=== PATIENT | female | born 1970 | race Caucasian/White ===

== ENCOUNTER → 2021-02-21 10:38 | Outpatient (CLI) | payer BC, SELFPAY ==
--- NOTE | 2021-02-21 | DI.MG.S_ITS ---
BILATERAL DIGITAL SCREENING MAMMOGRAM 3D/2D WITH CAD: 02/21/2021 CLINICAL: Routine screening. Comparison is made to exams dated: 11/09/2017 mammogram, 11/30/2018 mammogram, and 02/21/2020 mammogram - outside facility. There are scattered fibroglandular elements in both breasts. Current study was also evaluated with a Computer Aided Detection (CAD) system. No significant masses, calcifications, or other findings are seen in either breast. There has been no significant interval change. IMPRESSION: NEGATIVE There is no mammographic evidence of malignancy. A 1 year screening mammogram is recommended. This exam was interpreted at Station ID: [id number]. NOTE: For mammograms, a report in lay terms will be sent to the patient. Approximately 15% of breast malignancies will not be visualized mammographically. In the management of a palpable breast mass, a negative mammogram must not discourage biopsy of a clinically suspicious lesion. Electronically Signed By: Abiel Bush M.D., jr/tolu:02/21/2021 13:11:41 letter sent: Normal Exam ACR BI-RADS Category 1: Negative 3341F
== END ==
PROVIDERS: PCP Internal Medicine; Referring Provider Internal Medicine; Visit Provider Internal Medicine
DX: Z12.31 Encounter for screening mammogram for malignant neoplasm of breast (principal)
CPT/HCPCS: 77063; 77067

== ENCOUNTER → 2021-08-07 07:41 | Outpatient (CLI) | payer BC, SELFPAY ==
--- NOTE | 2021-08-07 | DI.US.S_ITS ---
PROCEDURE: US PELVIC COMPLETE INDICATIONS: CRAMPING X 1 YEAR LMP 09/11/2020. TECHNIQUE: Real-time scanning was performed of the pelvic organs, with image documentation. Additional endovaginal scanning was necessary due to incomplete visualization of the adnexal and endometrial structures by transabdominal scanning. COMPARISON: None. FINDINGS: Uterus: Uterus is anteverted and normal in size at 6.8 x 4.6 x 3.2 cm. The myometrium is homogeneous. No fibroids identified. The endometrium measures 2.2 mm combined thickness. Ovaries: The right ovary measures 2.5 x 1.8 x 0.9 cm, with a calculated ovarian volume of 2 cc. The left ovary measures 1.6 x 1.1 x 1.1 cm, with a calculated ovarian volume of 1 cc. The ovaries have a normal sonographic appearance. Small collapsing left anechoic cyst measuring 1.1 cm. No adnexal masses are seen. Other: No pathologic free abdominal or pelvic fluid. IMPRESSION: 1. No endometrial thickening. 2. No fibroids seen. 3. Sonographic appearance of the ovaries is within normal limits. We strive to produce accurate, complete, and clear reports of imaging services. To assist us in improving patient care, this report was composed using standard report templates and voice recognition software. Therefore, it may contain abnormal punctuation, insertions and/or omissions. Occasional wrong-word or sound-alike substitutions may occur. Though we review the report and make efforts to correct it, we do recommend that the report be read carefully in proper context to recognize any text inaccuracies. Dictated by: Sanjay Felton M.D. on 08/07/2021 at 8:59 Approved by: Sanjay Felton M.D. on 08/07/2021 at 9:06
== END ==
PROVIDERS: PCP Internal Medicine; Referring Provider Internal Medicine; Visit Provider Internal Medicine
DX: R10.2 Pelvic and perineal pain (principal); Z78.0 Asymptomatic menopausal state
CPT/HCPCS: 76830; 76856

== ENCOUNTER → 2022-01-06 14:35 | Outpatient (CLI) | payer BC, SELFPAY ==
--- NOTE | 2022-01-06 | DI.US.S_ITS ---
PROCEDURE: US PELVIC COMPLETE INDICATIONS: Postmenopausal bleeding TECHNIQUE: Real-time scanning was performed of the pelvic organs, with image documentation. Additional endovaginal scanning was necessary due to incomplete visualization of the adnexal and endometrial structures by transabdominal scanning. COMPARISON: None. FINDINGS: Uterus: Uterus is anteverted and normal in size at 8.3 x 3.6 by 5.2 cm. The myometrium is homogeneous. The endometrium measures approximately 2.8 mm combined thickness, although the margins of the endometrium are not well-defined. Ovaries: The right ovary measures 3.0 x 1.1 x 0.9 cm. The left ovary measures 2.0 x 1.7 x 1.9 cm. There is a 1.3 x 1.3 x 1.2 centimeter complex appearing cyst in the left adnexa which likely represents a simple cyst with the simple daughter cyst. Other: No pathologic free abdominal or pelvic fluid. IMPRESSION: Endometrium has poorly defined margins. Early neoplastic process is not excluded by this study. Recommend gynecology consultation and/or MRI of the pelvis for additional evaluation. Dictated by: Minda Maher MD, PhD on 01/06/2022 at 16:01 Approved by: Minda Maher MD, PhD on 01/06/2022 at 16:07
== END ==
PROVIDERS: PCP Internal Medicine; Referring Provider Internal Medicine; Visit Provider Internal Medicine
DX: N95.0 Postmenopausal bleeding (principal); N94.89 Other specified conditions associated with female genital organs and menstrual cycle
CPT/HCPCS: 76830; 76856

== ENCOUNTER → 2022-01-08 16:34 | Outpatient (CLI) | payer BC, SELFPAY ==
--- NOTE | 2022-01-08 16:37 | DI.MRI.S_ITS ---
PROCEDURE: MR PELVIS WO/W CON INDICATIONS: Postmenopausal bleeding/abnormal findings TECHNIQUE: Coronal HASTE, sagittal breath-hold T2 FSE; axial T1 FSE with and without fat saturation through the pelvis. Optional long- and short-axis uterine nonbreath-hold T2 FSE through the uterus. Sagittal or axial dynamic VIBE during administration of contrast. Post-contrast axial or coronal VIBE/2-D FLASH with fat saturation from the iliac crests to the symphysis. Optional diffusion weighted imaging and ADC may be performed. COMPARISON: [facility], PELVIC COMPLETE, 01/06/2022, 14:49. [facility], PELVIC COMPLETE, 08/07/2021, 7:52. FINDINGS: Image quality: Excellent. Uterus: The uterus is anteverted and has a septate morphology. A 1.2 cm irregular hypointense, hypoenhancing focus along the posterior fundal myometrium may be a fibroid. No other uterine masses. Junctional zone margin is not well seen. The margin of the endometrium is irregular and indistinct, particularly in the fundal region. There are a few sub endometrial cystic spaces posteriorly in the lower uterine segment. The endometrial thickness is at least 0.5 cm. Tiny sub endometrial T1 hyperintense foci are seen. No suspicious focal enhancement. Adnexa: The left ovary contains a dominant follicle and daughter cyst. The right ovary was not well seen, presumably diminutive. No unusual adnexal masses. Urinary system: Bladder wall is normal in thickness. Distal ureters are non distended. Urethra appears normal in morphology. Nodes and vessels: No pelvic or inguinal adenopathy by size criteria. Iliac vessels are normal in size. Bowel and peritoneum: No pathologic free pelvic fluid. Trace physiologic fluid. Inferior colon and small bowel loops are normal in caliber. Soft tissues: No inguinal hernias. No findings of pelvic floor incompetence in the absence of provocation. Bones: Marrow demonstrates normal overall signal. IMPRESSION: 1. Endometrial thickness by MRI at the upper limits of normal with an irregular margin. Given indistinct junctional zone, subendometrial cystic foci, and a sonographic appearance of extensive myometrial heterogeneity, findings are suspicious for uterine adenomyosis. Endometrial neoplasm is felt less likely but not entirely excluded. Given endometrial thickening and postmenopausal bleeding, tissue biopsy is recommended. 2. Physiologic left ovarian follicle. Dictated by: Sharon Nesbitt M.D. on 01/09/2022 at 9:57 Approved by: Sharon Nesbitt M.D. on 01/09/2022 at 10:35
== END ==
PROVIDERS: PCP Internal Medicine; Referring Provider Internal Medicine; Visit Provider Internal Medicine
DX: N95.0 Postmenopausal bleeding (principal); R93.89 Abnormal findings on diagnostic imaging of other specified body structures
CPT/HCPCS: 72197; A9579

== ENCOUNTER → 2022-01-13 13:32 | Outpatient (CLI) | payer BC, SELFPAY ==
[2022-01-13 15:40] LABS: COVID19 -Nasal RAPID Negative (Negative)
== END ==
PROVIDERS: PCP Internal Medicine; Visit Provider Family Medicine Sleep Medicine
DX: Z20.822 Contact with and (suspected) exposure to COVID-19 (principal)
CPT/HCPCS: 87635; C9803

== ENCOUNTER 2022-01-14 14:56 | Day surgery (SDC) | payer BC, SELFPAY ==
--- NOTE | 2022-01-14 12:11 | PM.PREOP ---
Pre-operative Note COVID-19 COVID-19 status: Negative Result date/Date tested (Pos, Neg/Pending): 01/13/22 Interval Note History & Physical reviewed/Exam performed by Physician: Yes Changes to H&P: No ASA Class (for procedural sedation): I
--- NOTE | 2022-01-14 12:13 | PM.OP.COLON ---
Operative Date/Time/Diagnoses Date of procedure: 01/14/22 Procedure Notes SCOAP/Timeout: 4:03 p.m. Procedure in detail: ENDOSCOPIST: Fatemeh Bautista MD Sedation RN: Ada Gomez RN Sedation start time: 4:04 p.m. Sedation end time: 3:21 p.m. PROCEDURE: Colonoscopy INDICATIONS: 1. Screening for colon cancer MEDICATION: Levsin 0.125 mg sublingual, incremental doses of Versed and fentanyl until appropriate level sedation achieved. ASA CLASS: 1 CECAL WITHDRAWAL TIME: 6 minutes COMPLICATIONS: None. EXTENT OF PROCEDURE: Cecum. QUALITY OF PREP: Good with portions of liquid stool. PROCEDURE: Prior to insertion of the colonoscope, a digital rectal examination was accomplished with circumferential palpation of the distal rectal mucosa without significant findings being noted. The high-definition pediatric colonoscope was passed into the rectum in the usual fashion and advanced over to the cecum without difficulty. The ileocecal valve, appendiceal stoma, and medial wall all could be inspected and no abnormalities were seen. ASCENDING COLON: As the colonoscope was withdrawn, care was taken to expose and inspect the haustral folds and no abnormalities were seen. HEPATIC FLEXURE: Normal, no polyps, diverticula or other abnormalities. TRANSVERSE COLON: Normal, no polyps, diverticula or other abnormalities. DESCENDING COLON: Normal, no polyps, diverticula or other abnormalities. SIGMOID COLON: Normal, no polyps, diverticula or other abnormalities. RECTUM: Normal. J maneuver was produced. There was no significant perianal disease. The J maneuver was broken. The remainder of the rectum was inspected and there was no external hemorrhoid disease. The scope was withdrawn. IMPRESSION: 1. Normal colonoscopy PLAN: 1. Repeat colonoscopy in 10 years. The possibility of a missed lesion including a malignancy has been discussed with the patient previously. Potential alarm symptoms have been discussed and should be reported immediately.
[2022-01-14 15:16] VITALS: BP 113/76; PULSE 57; RESP 16; TEMP 36.5; O2SAT 100; BMI 20.5
[2022-01-14] MEDS: HYOSCYAMINE 0.125 MG TABLET PO (15:29)
[2022-01-14] MEDS: LACTATED RINGERS 1,000 ML 200 ML IV (15:29)
[2022-01-14] MEDS: fentaNYL 250 MCG/5 ML INJ 75 MCG IV (16:06)
[2022-01-14] MEDS: MIDAZOLAM 5 MG/5 ML VIAL 3 MG IV (16:06)
[2022-01-14 16:25] VITALS: BP 102/58; PULSE 50; RESP 19; TEMP 36.2; O2SAT 100
[2022-01-14 16:30] VITALS: BP 98/58; PULSE 51; RESP 17; O2SAT 100
[2022-01-14 16:35] VITALS: BP 109/64; PULSE 47; RESP 15; O2SAT 100
[2022-01-14 16:40] VITALS: BP 109/60; PULSE 45; RESP 15; O2SAT 100
[2022-01-14 16:43] VITALS: BP 103/58; PULSE 47; RESP 15; O2SAT 100
== END 2022-01-14 16:51 | disposition home or self-care (01) ==
PROVIDERS: PCP Internal Medicine; Referring Provider Student in an Organized Health Care Education/Training Program; Visit Provider Student in an Organized Health Care Education/Training Program
PROC: 0DJD8ZZ Inspection of Lower Intestinal Tract, Via Natural or Artificial Opening Endoscopic (ICD-10-PCS; CPT 45378; principal; 2022-01-14 16:00)
DX: Z12.11 Encounter for screening for malignant neoplasm of colon (principal)
CPT/HCPCS: 45378; J2250; J3010

== ENCOUNTER → 2022-02-26 11:45 | Outpatient (CLI) | payer BC, SELFPAY ==
--- NOTE | 2022-02-26 | DI.MG.S_ITS ---
BILATERAL DIGITAL SCREENING MAMMOGRAM 3D/2D WITH CAD: 02/26/2022 CLINICAL: Routine screening. Comparison is made to exams dated: 02/21/2021 mammogram - [facility], 02/21/2020 mammogram, and 11/30/2018 mammogram - outside facility. There are scattered fibroglandular elements in both breasts. Current study was also evaluated with a Computer Aided Detection (CAD) system. No significant masses, calcifications, or other findings are seen in either breast. There has been no significant interval change. IMPRESSION: NEGATIVE There is no mammographic evidence of malignancy. A 1 year screening mammogram is recommended. Based on the Tyrer Cuzick model (a risk assessment model) the patient's lifetime risk is 14.8% and her 10 year risk is 4.1%. According to the ACR, ACS, and NCCN guidelines, an annual breast MRI exam along with mammogram is recommended if the patient's lifetime risk is 20% or greater. This exam was interpreted at Station ID: [id number]. NOTE: For mammograms, a report in lay terms will be sent to the patient. Approximately 15% of breast malignancies will not be visualized mammographically. In the management of a palpable breast mass, a negative mammogram must not discourage biopsy of a clinically suspicious lesion. Electronically Signed By: Jhonny cervantes/tolu:02/26/2022 12:54:48 letter sent: Normal Exam ACR BI-RADS Category 1: Negative 3341F
== END ==
PROVIDERS: PCP Internal Medicine; Referring Provider Internal Medicine; Visit Provider Internal Medicine
DX: Z12.31 Encounter for screening mammogram for malignant neoplasm of breast (principal)
CPT/HCPCS: 77063; 77067

== ENCOUNTER → 2022-03-11 15:12 | Outpatient (CLI) | payer BC, SELFPAY ==
[2022-03-11 16:41] LABS: Follicle Stimulating Hormone 25.6 mIU/mL
[2022-03-11 17:29] LABS: Estradiol, Total 101.3 pg/mL
== END ==
PROVIDERS: PCP Internal Medicine; Referring Provider Obstetrics & Gynecology; Visit Provider Obstetrics & Gynecology
DX: N95.1 Menopausal and female climacteric states (principal)
CPT/HCPCS: 36415; 82670; 83001

== ENCOUNTER → 2022-07-21 15:54 | Outpatient (CLI) | payer BC, SELFPAY ==
--- NOTE | 2022-07-21 15:56 | DI.ECHO.S_ITS ---
[facility] +---------+ : : [address] : [place] : : : : [id number] : : : : Phone: [phone]---------+ Echocardiogram Report + + :Name: TIMOTHY STOREY Study Date: 07/21/2022 Height: 63 in : :[facility] ReadingLocation: Weight: 116 lb : : Gender: Female BSA: 1.5 m2 : :: 1970 Age: 52 yrs BP: 132/90 mmHg: :Reason For Study: Palpitations : :Ordering Physician: REDD, : :EDDIE Performed By: Benjy Friend : :Referring: EDDIE RAINEY : + + Interpretation Summary Normal echo study. Procedure: A two-dimensional transthoracic echocardiogram with color flow and Doppler was performed. The study quality was technically adequate. There is no prior echocardiogram noted for this patient. The patient was in normal sinus rhythm during the exam. Left Ventricle: The left ventricle is normal in size and wall thickness. Left ventricular systolic function is normal. The ejection fraction is estimated to be 55-60%. There are no focal wall motion abnormalities. Diastolic parameters suggest probable normal left ventricular diastolic function and normal filling pressures. Right Ventricle: The right ventricle is normal in size and function. Atria: Both atria are normal in size. The interatrial septum grossly appears intact with no obvious evidence for an atrial septal defect. Mitral Valve: The mitral valve is normal in structure and function. There is trace mitral regurgitation. Aortic Valve: The aortic valve is normal in structure and function. No aortic regurgitation is present. Tricuspid Valve: The tricuspid valve is normal in structure and function. There is trace tricuspid regurgitation. The right ventricular systolic pressure is estimated to be at least 27 mmHg based on an estimated right atrial pressure of 8 mm Hg. Pulmonic Valve: The pulmonic valve is not well visualized. There is no pulmonic valvular regurgitation. Great Vessels: The aortic root is normal size. The dimensions of the ascending aorta are normal. The IVC is dilated (diameter is greater than 2.1 cm) yet it collapses greater than 50% with a sniff. This suggests a right atrial pressure of 8 mm Hg. Pericardium/ Pleura There is no pericardial effusion. There is no pleural effusion. MMode/2D Measurements & Calculations LVIDd: 4.4 cm LVOT diam: 1.8 cm LVIDs: 2.8 cm Ao root diam: 2.6 cm FS: 36.4 % asc Aorta Diam: 3.2 cm IVSd: 0.80 cm LVPWd: 0.80 cm LV johns. diameter/BSA (cm/m^2): 2.9 LV sys. diameter/BSA (cm/m^2): 1.8 LA dimension: 2.8 cm RA long axis: 4.1 cm LA A2 area: 14.7 cm2 RA area: 10.3 cm2 LA A4 area: 15.8 cm2 RA vol: 22.2 ml LA length (vol): 4.3 cm RA : 14.4 ml/m2 LA vol: 45.9 ml IVC diam: 2.3 cm LA vol index: 29.9 ml/m2 RVD1 (basal): 3.0 cm TAPSE_phl: 2.3 cm Doppler Measurements & Calculations Ao V2 max: 134.0 cm/sec LVOT Max Masood: 143.0 cm/sec Ao V2 mean: 94.7 cm/sec LV V1 max P.2 mmHg Ao max P.0 mmHg LV V1 VTI: 30.6 cm Ao mean P.0 mmHg CHARLES(I,D): 2.6 cm2 Ao V2 VTI: 29.9 cm CHARLES(V,D): 2.7 cm2 sev ratio: 1.0 CHARLES indexed to BSA (cm^2/m^2): 1.7 MV E max masood: 85.9 cm/sec TR max masood: 220.0 cm/sec MV A max masood: 63.5 cm/sec TR max P.4 mmHg MV E/A: 1.4 Med Peak E' Masood: 10.8 cm/sec E/E' med: 8.0 Lat Peak E' Masood: 11.1 cm/sec E/E' lat: 7.7 E/e' average: 7.8 MV dec time: 0.20 sec SV(LVOT): 77.9 ml AV VR_phl: 1.1 CHARLES(VTI)/BSA_phl: 1.7 MV P1/2t-pr_phl: 60.0 msec Electronically signed by: Patrizia Colvin on Reading Physician:07/21/2022 10:35 PM
== END ==
PROVIDERS: PCP Internal Medicine; Referring Provider Internal Medicine; Visit Provider Internal Medicine
DX: R00.2 Palpitations (principal)
CPT/HCPCS: 93306

== ENCOUNTER → 2023-03-04 12:56 | Outpatient (CLI) | payer BC, SELFPAY ==
--- NOTE | 2023-03-04 | DI.MG.S_ITS ---
BILATERAL DIGITAL SCREENING MAMMOGRAM 3D/2D WITH CAD: 03/04/2023 CLINICAL: Routine screening. Family history of breast cancer. Comparison is made to exams dated: 02/26/2022 mammogram, 02/21/2021 mammogram - [facility], and 02/21/2020 mammogram - outside facility. There are scattered areas of fibroglandular density in both breasts (category b / 25%-50% glandular tissue). Current study was also evaluated with a Computer Aided Detection (CAD) system. No significant masses, calcifications, or other findings are seen in either breast. There has been no significant interval change. IMPRESSION: NEGATIVE There is no mammographic evidence of malignancy. A 1 year screening mammogram is recommended. Based on the Tyrer Cuzick model (a risk assessment model) the patient's lifetime risk is 14.6% and her 10 year risk is 4.3%. According to the ACR, ACS, and NCCN guidelines, an annual breast MRI exam along with mammogram is recommended if the patient's lifetime risk is 20% or greater. This exam was interpreted at Station ID: [id number]. NOTE: For mammograms, a report in lay terms will be sent to the patient. Approximately 15% of breast malignancies will not be visualized mammographically. In the management of a palpable breast mass, a negative mammogram must not discourage biopsy of a clinically suspicious lesion. Electronically Signed By: Talha sims/tolu:03/04/2023 13:38:09 letter sent: Normal Exam ACR BI-RADS Category 1: Negative 3341F
== END ==
PROVIDERS: PCP Internal Medicine; Referring Provider Internal Medicine; Visit Provider Internal Medicine
DX: Z12.31 Encounter for screening mammogram for malignant neoplasm of breast (principal); Z80.3 Family history of malignant neoplasm of breast
CPT/HCPCS: 77063; 77067

== ENCOUNTER → 2024-04-18 13:13 | Outpatient (CLI) | payer BC, SELFPAY ==
--- NOTE | 2024-04-18 13:14 | DI.MG.S_ITS ---
BILATERAL DIGITAL SCREENING MAMMOGRAM 3D/2D WITH CAD: 04/18/2024 CLINICAL: Routine screening. Family history of breast cancer. Comparison is made to exams dated: 03/04/2023 mammogram, 02/26/2022 mammogram, and 02/21/2021 mammogram - [facility]. There are scattered areas of fibroglandular density in both breasts (category b / 25%-50% glandular tissue). Current study was also evaluated with a Computer Aided Detection (CAD) system. No significant masses, calcifications, or other findings are seen in either breast. There has been no significant interval change. IMPRESSION: NEGATIVE There is no mammographic evidence of malignancy. A 1 year screening mammogram is recommended. Based on the Tyrer Cuzick model (a risk assessment model) the patient's lifetime risk is 14.5% and her 10 year risk is 4.5%. According to the ACR, ACS, and NCCN guidelines, an annual breast MRI exam along with mammogram is recommended if the patient's lifetime risk is 20% or greater. This exam was interpreted at Station ID: [id number]. NOTE: For mammograms, a report in lay terms will be sent to the patient. Approximately 15% of breast malignancies will not be visualized mammographically. In the management of a palpable breast mass, a negative mammogram must not discourage biopsy of a clinically suspicious lesion. Electronically Signed By: Talha sims/tolu:04/18/2024 13:36:09 letter sent: Normal Exam ACR BI-RADS Category 1: Negative 3341F
== END ==
PROVIDERS: PCP Internal Medicine; Referring Provider Internal Medicine; Visit Provider Internal Medicine
DX: Z12.31 Encounter for screening mammogram for malignant neoplasm of breast (principal); Z80.3 Family history of malignant neoplasm of breast; R92.323 Mammographic fibroglandular density, bilateral breasts
CPT/HCPCS: 77063; 77067

== ENCOUNTER 2024-04-21 12:40 | Emergency (ER) | payer BC, SELFPAY ==
[2024-04-21] VITALS (8 sets, daily range): BP systolic 110–141; BP diastolic 66–83; PULSE 54–71; RESP 14; TEMP 36.3; O2SAT 93–100
--- NOTE | 2024-04-21 13:11 | ED.WEAKNESS ---
HPI - Weakness General Chief complaint: Urogenital-Female Stated complaint: low bp, wrist swelling both Time Seen by Provider: 04/21/24 12:46 Source: patient Mode of arrival: Ambulatory History of Present Illness HPI Narrative: Patient is a 54-year-old healthy female presenting today from PCP office. She reports that she was just treated for a UTI he finished antibiotics, Macrobid, 2 days ago she was on 5 days of antibiotics. She reports that symptoms are somewhat improved but not completely gone. She went there for follow-up. Today he is reporting of significant bilateral wrist pain. 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 Yesterday she reports some body aches and chills. No actual fever. She has no sore throat cough. She denies any back pain nausea or vomiting. She does not feel quite right. Now she is noticing that she has a little bit rash in bilateral ACs and upon her right arm. She denies any pruritus. No difficulty breathing. Related Data Home Medications Medication Instructions Recorded Confirmed No Known Home Medications 03/11/22 03/11/22 Allergies Allergy/AdvReac Type Severity Reaction Status Date / Time Penicillins Allergy Intermediate Verified 04/21/24 12:53 birch tree pollen Allergy Unknown Uncoded 03/11/22 14:36 certain fruits Allergy Unknown Uncoded 03/11/22 14:36 certain vegtables Allergy Unknown Uncoded 03/11/22 14:36 nuts Allergy Unknown Uncoded 03/11/22 14:36 Patient History Medical History COVID-19 Macrocytosis Stress incontinence Post-menopausal bleeding Surgical History History of appendectomy Hx of colonoscopy Social History household members: spouse Smoking Status: Never smoker alcohol intake: current Smoking Status: Never smoker alcohol intake frequency: 0-2 drinks per day Substance Use Type: does not use Exam Initial Vital Signs Initial Vital Signs: Vital Signs Temperature 97.4 F L 04/21/24 12:42 Pulse Rate 71 04/21/24 12:42 Respiratory Rate 14 04/21/24 12:42 Blood Pressure 141/66 H 04/21/24 12:42 Pulse Oximetry 100 04/21/24 12:42 Oxygen Delivery Method Room Air 04/21/24 12:42 GENERAL: Alert pleasant 54-year-old female and in no acute distress. HEENT: Head atraumatic,EOMI, pupils reactive, face symmetric, moist mucous membranes CARDIOVASCULAR: Regular rate and rhythm without murmurs, rubs or gallops. RESPIRATORY: Breath sounds equal bilaterally, no wheezes rales or rhonchi. ABDOMEN: Soft, nontender. Normoactive bowel sounds all 4 quadrants. No guarding or rebound. : No CVA tenderness EXTREMITIES: Normal range of motion, no clubbing or edema. Neurovascularly intact Minimal bilateral wrist swelling no significant erythema full range of motion NEUROLOGICAL: Alert and oriented x4.Normal gait and speech. Cranial nerves II through XII grossly intact. SKIN: 2 very small areas of erythema and AC joints he is 2 small red dots in her right upper medial arm Course Orders Ordered: ED Orders 04/21/24 13:36 CBC Auto Diff [Complete Blood Count AUTO DIFF] Stat CMP [Comprehensive Metabolic Panel] Stat Lactate (Lactic Acid) Stat Procalcitonin Stat UA Complete [Urinalysis and Microscopic] Stat 04/21/24 14:13 Blood Culture Stat Discontinued Medications Sodium Chloride (Normal Saline 0.9%) 1,000 mls @ 1,000 mls/hr IV BOLUS ONE Stop: 04/21/24 14:10 Last Admin: 04/21/24 13:44 Dose: 1,000 mls/hr Documented By: CTS Vital Signs Vital signs: Vital Signs - 8 hr 04/21/24 12:42 04/21/24 12:43 04/21/24 12:43 Temperature 97.4 F L Pulse Rate 71 63 Respiratory Rate 14 Blood Pressure 141/66 H 141/66 H Pulse Oximetry 100 99 Oxygen Delivery Method Room Air 04/21/24 13:00 04/21/24 13:00 04/21/24 13:33 Temperature Pulse Rate 54 L Respiratory Rate Blood Pressure 133/76 Pulse Oximetry 99 93 Oxygen Delivery Method 04/21/24 13:34 04/21/24 13:34 04/21/24 14:00 Temperature Pulse Rate 58 L Respiratory Rate Blood Pressure 113/83 110/71 Pulse Oximetry 100 Oxygen Delivery Method 04/21/24 14:00 04/21/24 14:30 04/21/24 14:30 Temperature Pulse Rate 56 L 61 Respiratory Rate Blood Pressure 125/72 Pulse Oximetry 100 100 Oxygen Delivery Method 04/21/24 14:42 04/21/24 14:42 Temperature Pulse Rate 66 Respiratory Rate Blood Pressure 119/75 Pulse Oximetry 100 Oxygen Delivery Method MDM - Weakness Lab Data 04/21/24 13:36 04/21/24 13:36 Labs: Lab Results 04/21/24 Range/Units 13:36 WBC 6.9 (4.5-11.0) X10^3/uL RBC 3.89 L (4.0-5.2) X10^6/uL Hgb 13.4 (12.0-16.0) g/dL Hct 39.1 (36-46) % MCV 100.5 H (80-100) fL MCH 34.5 H (26-34) PG MCHC 34.4 (30-36) % RDW 12.2 (11.6-14.8) % Plt Count 202 (150-400) X10^3/uL Neut % (Auto) 80.4 H (50-75) % Lymph % (Auto) 13.3 L (25-40) % [place] % (Auto) 5.3 (3-14) % Eos % (Auto) 0.7 L (2-4) % Baso % (Auto) 0.3 (0-2) % Neut # (Auto) 5600 (0304-6253) /uL Lymph # (Auto) 900 L (5909-5391) /uL [place] # (Auto) 400 (0-900) /uL Eos # (Auto) 0 (0-450) /uL Baso # (Auto) 0 (0-100) /uL Sodium 136 L (137-145) mmol/L Potassium 4.1 (3.4-5.1) mmol/L Chloride 103 (98-107) mmol/L Carbon Dioxide 25 (22-32) mmol/L BUN 13 (7-17) mg/dL Creatinine 0.85 (0.52-1.04) mg/dL Estimated GFR > 60 (>60) mL/min BUN/Creatinine Ratio 15.3 (6-22) Glucose 107 H (70-100) mg/dL Lactate 1.1 (0.7-2.1) mmol/L Calcium 9.3 (8.4-10.2) mg/dL Total Bilirubin 0.6 (0.2-1.3) mg/dL AST 90 H (14-36) IU/L ALT 71 H (<35) IU/L Alkaline Phosphatase 80 (38-126) U/L Total Protein 7.6 (6.3-8.2) g/dL Albumin 4.1 (3.5-5.0) g/dL Globulin 3.5 (1.7-4.1) g/dL Albumin/Globulin Ratio 1.2 (1.0-2.8) Procalcitonin 0.171 (<0.5) ng/mL Urine Color Yellow Urine Appearance Clear Urine pH 5.5 (4.5-8.0) Ur Specific [place] <=1.005 (1.000-1.035) Urine Protein Negative (Negative) Urine Glucose (UA) Negative (Negative) g/dL Urine Ketones Negative (NEGATIVE) Urine Occult Blood Negative (Negative) Urine Nitrate Negative (Negative) Urine Bilirubin Negative (NEGATIVE) Urine Urobilinogen 0.2 (0.2) E.U./dL Ur Leukocyte Esterase Negative (NEGATIVE) Urine RBC None seen (0-5/HPF) Urine WBC None seen (0-5/HPF) Ur Squamous Epith Cells None seen (0-5/HPF) Urine Bacteria None seen (None) Ur Culture Indicated? Cult not indicated Vol Urine Centrifuged 10ml (spun) MDM Narrative Medical decision making narrative: Patient 54-year-old female presenting today with some body aches bilateral wrist pain recent UTI. She does have a mild rash but does not appear to be urticaria in nature. She had some testing done at primary care clinic but I am not able to see that. Urinalysis today does not show any evidence Of UTI. Blood work has been reviewed WBCs 6.9 hemoglobin 13.4 hematocrit 39.1 platelets 202, sodium 136 potassium 4.1 chloride 103 carbon dioxide 25 BUN 13 creatinine 0.8 glucose 107, bili 0.6, AST 90 ALT 71, procalcitonin 0.171, lactate 1.1 Patient having mild viral symptoms she is afebrile here she had chills yesterday. No obvious infection today urinalysis is clear. I suspect that her wrist is just reactive. She has no significant erythema I do not suspect septic joint especially bilaterally. She has a very mild rash does not look like shingles it is bilateral does not look urticarial. Possible viral rashes well. There has no petechiae no concern for meningitis. At this time recommend supportive care wait for primary care testing Discharge Plan Departure Patient Disposition: Home Clinical Impression: Acute viral syndrome Instructions: DI for Viral Syndrome Activity Restrictions/Additional Instructions: *You have been diagnosed with I suspect a viral illness *What to do: At this time your urinalysis is negative for any infection. I see no need for any further antibiotics. Your blood work today is overall reassuring. I suspect your wrist her from reactive arthritis *Continue to take medications as directed *Follow up with your primary care provider in 2-3 days or call [phone] *Return to ER if you should have increasing pain symptoms redness fever or any new, worsening or concerning symptoms Prescriptions: No Action No Known Home Medications Referrals: Jessica Chun ARNP [Primary Care Provider] - Stand Alone Forms: Patient Portal/API
[2024-04-21] MEDS: SODIUM CHLORIDE 0.9% 1,000 ML 1000 ML IV (13:44)
--- NOTE | 2024-04-21 13:46 | PC.NURSE ---
Pt reports recent UTI which she was placed on macrobid and completed. states that she still suspects UTI however no dysuria. Has noticed a red macular rash along JAN in axilla area as well as bilateral AC's. States she has some arthritis that she is aware of however bilateral wrists are very painful and mildly swollen. having episodes of hypotension which is concerning her. Was sent to ED by PCP after visit today. IV placed and BC drawn. Pt receiving IVFs at this time and produced urine sent to lab. clear yellow in color. given warm blankets and resting on stretcher with at bedside.
[2024-04-21 13:47] LABS: Add Manual Diff / Slide Review NO; Basophils Absolute Auto 0 /uL (0-100); Basophils Percent Auto 0.3 % (0-2); Eosinophils Absolute Auto 0 /uL (0-450); Eosinophils Percent Auto 0.7 % (2-4); Hematocrit 39.1 % (36-46); Hemoglobin 13.4 g/dL (12.0-16.0); Lymphocytes Absolute Auto 900 /uL (1100-4500); Lymphocytes Percent Auto 13.3 % (25-40); Mean Corpuscular HGB Conc 34.4 % (30-36); Mean Corpuscular Hemoglobin 34.5 PG (26-34); Mean Corpuscular Volume 100.5 fL (80-100); Monocytes Absolute Auto 400 /uL (0-900); Monocytes Percent Auto 5.3 % (3-14); Neutrophils Absolute Auto 5600 /uL (1500-7000); Neutrophils Percent Auto 80.4 % (50-75); Platelet Count 202 X10^3/uL (150-400); Red Blood Cell Count 3.89 X10^6/uL (4.0-5.2); Red Cell Distribution Width 12.2 % (11.6-14.8); White Blood Cell Count 6.9 X10^3/uL (4.5-11.0)
[2024-04-21 13:51] LABS: Appearance Urine UA CLEAR; Bilirubin Urine UA NEGATIVE (NEGATIVE); Color Urine UA YELLOW; Glucose Urine UA NEGATIVE (Negative); Ketones Urine UA NEGATIVE (NEGATIVE); Leukocyte Esterase Urine UA NEGATIVE (NEGATIVE); Nitrite Urine UA NEGATIVE (Negative); Occult Blood Urine UA NEGATIVE (Negative); Protein Urine UA NEGATIVE (Negative); Specific Gravity Urine UA <=1.005 (1.000-1.035); Urobilinogen Urine UA 0.2 E.U./dL (0.2)
[2024-04-21 13:53] LABS: Urine Volume 10mL (spun); pH Urine UA 5.5 (4.5-8.0)
[2024-04-21 13:54] LABS: Bacteria Urine None Seen; Culture Indicated Urine Cult Not Indicated; RBC Urine None Seen (0-5/HPF); Squamous Epithelial Cell Urine None Seen (0-5/HPF); WBC Urine None Seen (0-5/HPF)
[2024-04-21 14:01] LABS: Lactate (Lactic Acid) 1.1 mmol/L (0.7-2.1)
[2024-04-21 14:02] LABS: Alanine Aminotransferase 71 IU/L (<35); Albumin 4.1 g/dL (3.5-5.0); Albumin Globulin Ratio 1.2 (1.0-2.8); Alkaline Phosphatase 80 U/L (38-126); Aspartate Aminotransferase 90 IU/L (14-36); BUN Creatinine Ratio 15.3 (6-22); Bilirubin Total 0.6 mg/dL (0.2-1.3); Blood Urea Nitrogen 13 mg/dL (7-17); Calcium 9.3 mg/dL (8.4-10.2); Carbon Dioxide 25 mmol/L (22-32); Chloride 103 mmol/L (98-107); Estimated Glomerular Filt Rate > 60 mL/min (>60); Globulin 3.5 g/dL (1.7-4.1); Glucose 107 mg/dL (70-100); HEMOLYSIS 31 (0-50); Potassium 4.1 mmol/L (3.4-5.1); Sodium 136 mmol/L (137-145); Total Protein 7.6 g/dL (6.3-8.2)
[2024-04-21 14:18] LABS: Procalcitonin 0.171 ng/mL (<0.5)
== END 2024-04-21 14:53 | disposition home or self-care (01) ==
PROVIDERS: Emergency Provider Emergency Medicine; PCP Internal Medicine
DX: B34.9 Viral infection, unspecified (principal); M25.532 Pain in left wrist; M25.531 Pain in right wrist; R21 Rash and other nonspecific skin eruption
CPT/HCPCS: 36415; 80053; 81001; 83605; 84145; 85025; 87040; 96360; 99284